=== PATIENT | female | born 1930 | race Caucasian/White ===

== ENCOUNTER 2017-05-13 15:01 | Emergency (ER) | payer MEDICARE, OTHER ==
[2017-05-13] MEDS ORDERED: Acetaminophen/HYDROcodone 325-10 MG Tab PO ONE (15:21)
[2017-05-13 16:05] VITALS: BP 139/77
--- NOTE | 2017-05-13 16:20 | EDM.PDOC ---
Scribed by Alexandra Aguilar 05/13/17 [id number] for George Wilhelm MD ED HPI GENERAL MEDICAL PROBLEM - General Chief Complaint: Lower Extremity Injury/Pain Stated Complaint: BACK ENJURY [id number] Time Seen by Provider: 05/13/17 15:07 Source of Information: Reports: Patient, RN, RN Notes Reviewed History Limitations: Reports: No Limitations - History of Present Illness INITIAL COMMENTS - FREE TEXT/NARRATIVE: Patient said that she lost her footing and fell landed in a sitting position. Denies head injury, loss of consciousness or any other injuries. Complains of pain to the left buttock and pelvis area. She states that she was able to get herself up and has been ambulatory. She had a friend drive her to the ER. She reports a firm tender swelling at the left buttock. She was concerned because she takes Coumadin and her INR was 2.9 this last week. Location: Reports: Other (buttock) Quality: Reports: Ache Severity: Severe Improves with: Reports: None Worsens with: Reports: None Associated Symptoms: Reports: No Other Symptoms Left Pain Score (Numeric/FACES): 8 - Related Data Allergies Allergy/AdvReac Type Severity Reaction Status Date / Time Horse/Equine Containing Allergy Cannot Verified 05/13/17 15:21 Products Remember spironolactone Allergy Cannot Verified 05/13/17 15:21 Remember Home Meds: Home Meds Atenolol [Atenolol] 25 mg PO DAILY 05/13/17 [History] Brimonidine [Alphagan 0.2% Ophth Soln] 3 drop EYEBOTH DAILY 05/13/17 [History] Calcium Carbonate [Tums] 2 tab PO DAILY 05/13/17 [History] Cholecalciferol (Vitamin D3) [Vitamin D3] 1 tab PO DAILY 05/13/17 [History] Enalapril Maleate [Enalapril Maleate] 20 mg PO DAILY 05/13/17 [History] Multivitamin with Minerals [Multiple Vitamin] 1 tab PO DAILY 05/13/17 [History] Omeprazole 1 tab PO DAILY 05/13/17 [History] Timolol Maleate [Timoptic 0.5% Ophth Soln] 2 drop .ROUTE DAILY 05/13/17 [History ] Warfarin [Coumadin] 2.5 mg PO ASDIRECTED 05/13/17 [History] Warfarin [Coumadin] 5 mg PO ASDIRECTED 05/13/17 [History] amLODIPine Besylate [Amlodipine Besylate] 10 mg PO DAILY 05/13/17 [History] atorvaSTATin [Lipitor] 10 mg PO DAILY 05/13/17 [History] Social & Family History - Family History Family Medical History: Noncontributory ED ROS GENERAL - Review of Systems Review Of Systems: ROS reveals no pertinent complaints other than HPI. ED EXAM,LOWER BACK PAIN/INJURY - Physical Exam Exam: See Below Exam Limited By: No Limitations General Appearance: Alert, WD/WN, No Apparent Distress Neck: Normal Inspection, Supple, Non-Tender, Full Range of Motion Respiratory/Chest: No Respiratory Distress, Lungs Clear, Normal Breath Sounds, No Accessory Muscle Use, Chest Non-Tender Cardiovascular: Normal Peripheral Pulses, Regular Rate, Rhythm, No Edema, No Gallop, No JVD, No Murmur, No Rub GI/Abdominal: Normal Bowel Sounds, Soft, Non-Tender, No Organomegaly, No Distention, No Abnormal Bruit, No Mass (Female) Exam: Deferred Rectal (Female) Exam: Deferred Extremities: Other (large tender hematoma on left buttock.) Neurological: Alert, Normal Mood/Affect, Normal Dorsiflexion, CN II-XII Intact, Normal Plantar Flexion, Normal Gait, Normal Reflexes, No Motor/Sensory Deficits , Oriented x 3 Psychiatric: Normal Affect, Normal Mood Skin Exam: Other (minor superficial abrasion to left elbow and left buttock.) Course - Vital Signs Last Recorded V/S: Last Vital Signs Temp 37.1 C 05/13/17 15:30 Pulse 68 05/13/17 15:30 Resp 18 05/13/17 15:30 BP 139/77 05/13/17 15:30 Pulse Ox 98 05/13/17 15:30 For vitals see nurses notes. - Orders/Labs/Meds Orders: Active Orders 24 hr Category Date Time Status Pelvis wo Cont [CT] Urgent Exams 05/13/17 15:07 Taken Labs: Laboratory Tests 05/13/17 05/13/17 Range/Units 15:23 15:23 WBC 10.5 H (5.0-10.0) 10^3/uL RBC 4.34 (4.2-5.4) 10^6/uL Hgb 12.7 (12.0-16.0) g/dL Hct 38.7 (37.0-47.0) % MCV 89.2 (80-100) fL MCH 29.3 (27.0-34.0) pg MCHC 32.8 L (33.0-35.0) g/dL Plt Count 141 L (150-450) 10^3/uL Neut % (Auto) 81.8 H (42.2-75.2) % Lymph % (Auto) 12.2 L (20.5-50.1) % Rabun % (Auto) 5.1 (2-8) % Eos % (Auto) 0.7 L (1.0-3.0) % Baso % (Auto) 0.2 (0.0-1.0) % PT 30.3 H (9.0-12.0) SEC INR 3.0 H (0.9-1.2) Meds: Medications Discontinued Medications Generic Name Dose Route Start Last Admin Trade Name Freq PRN Reason Stop Dose Admin Hydrocodone Bitart/Acetaminophen 0.5 tab 05/13/17 15:21 05/13/17 15:42 Beatty 325-10 Mg PO 05/13/17 15:22 0.5 tab ONETIME ONE Administration - Radiology Interpretation Free Text/Narrative:: CT pelvis: No acute fracture. Borad-based disc bulge, facet hypertrophy, and ligament hypertrophy at L3/L4 and L4/L5 consistent with spinal stenosis. Few loops of mildly dilated small bowel with air-fluid levels. May represent ileus or early small bowel obstruction. See rad report. Departure - Departure Time of Disposition: 15:57 Disposition: Home, Self-Care 01 Condition: Fair Clinical Impression: Supratherapeutic INR Traumatic hematoma of buttock Qualifiers: Encounter type: initial encounter Qualified Code(s): S30.0XXA - Contusion of lower back and pelvis, initial encounter Fall as cause of accidental injury at home as place of occurrence Qualifiers: Encounter type: initial encounter Qualified Code(s): W19.XXXA - Unspecified fall, initial encounter; Y92.009 - Unspecified place in unspecified non- institutional (private) residence as the place of occurrence of the external cause - Discharge Information Instructions: Hematoma, [id number] Forms: ED Department Discharge Additional Instructions: Ice pack to left buttock. RX: Beatty 5mg/325mg. *Do not drive while under the influence of this medication. Take your next Wrfarin dose 2.5mg tomorrow as planned and take the following day 2.5mg as well. Follow up with your doctor on May 15 or for recheck. - My Orders Last 24 Hours: My Active Orders 05/13/17 15:07 Pelvis wo Cont [CT] Urgent - Assessment/Plan Last 24 Hours: My Active Orders 05/13/17 15:07 Pelvis wo Cont [CT] Urgent I have read and agree with the documentation that has been completed regarding this visit. By signing this record, I attest that the documentation was completed in my physical presence and is an accurate record of the encounter.
== END 2017-05-13 16:20 | disposition home or self-care (01) ==
LOC: DL.ED 15:01
DX: S30.0XXA Contusion of lower back and pelvis, initial encounter (principal); S50.312A Abrasion of left elbow, initial encounter; S30.810A Abrasion of lower back and pelvis, initial encounter; R79.1 Abnormal coagulation profile; Z79.899 Other long term (current) drug therapy; Z88.8 Allergy status to other drugs, medicaments and biological substances; Z91.09 Other allergy status, other than to drugs and biological substances; W19.XXXA Unspecified fall, initial encounter; Y92.009 Unspecified place in unspecified non-institutional (private) residence as the place of occurrence of the external cause
CPT/HCPCS: 36415; 72192; 85025; 85610; 99284; A9270

== ENCOUNTER 2017-05-20 10:10 | Emergency (ER) | payer MEDICARE, OTHER ==
--- NOTE | 2017-05-20 10:14 | EDM.PDOC ---
ED HPI GENERAL MEDICAL PROBLEM - General Chief Complaint: General Stated Complaint: HEMATOMA, WORSE Time Seen by Provider: 05/20/17 11:30 Source of Information: Reports: Patient, RN, RN Notes Reviewed History Limitations: Reports: No Limitations - History of Present Illness INITIAL COMMENTS - FREE TEXT/NARRATIVE: Fell one week ago. Was seen in ER. No new injury. Concerned she may be bleeding still as she takes Coumadin. Quality: Reports: Ache Severity: Mild Improves with: Reports: None Worsens with: Reports: None Associated Symptoms: Reports: No Other Symptoms - Related Data Allergies Allergy/AdvReac Type Severity Reaction Status Date / Time Horse/Equine Containing Allergy Cannot Verified 05/20/17 10:16 Products Remember spironolactone Allergy Cannot Verified 05/20/17 10:16 Remember Home Meds: Home Meds Atenolol [Atenolol] 25 mg PO DAILY 05/13/17 [History] Brimonidine [Alphagan 0.2% Ophth Soln] 3 drop EYEBOTH DAILY 05/13/17 [History] Calcium Carbonate [Tums] 2 tab PO DAILY 05/13/17 [History] Cholecalciferol (Vitamin D3) [Vitamin D3] 1 tab PO DAILY 05/13/17 [History] Enalapril Maleate [Enalapril Maleate] 20 mg PO DAILY 05/13/17 [History] Multivitamin with Minerals [Multiple Vitamin] 1 tab PO DAILY 05/13/17 [History] Omeprazole 1 tab PO DAILY 05/13/17 [History] Timolol Maleate [Timoptic 0.5% Ophth Soln] 2 drop .ROUTE DAILY 05/13/17 [History ] Warfarin [Coumadin] 2.5 mg PO ASDIRECTED 05/13/17 [History] Warfarin [Coumadin] 5 mg PO ASDIRECTED 05/13/17 [History] amLODIPine Besylate [Amlodipine Besylate] 10 mg PO DAILY 05/13/17 [History] atorvaSTATin [Lipitor] 10 mg PO DAILY 05/13/17 [History] Past Medical History HEENT History: Reports: Glaucoma Cardiovascular History: Reports: Afib, Hypertension Gastrointestinal History: Reports: GERD Hematologic History: Reports: Anticoagulation Therapy Social & Family History - Family History Family Medical History: Noncontributory - Tobacco Use Smoking Status *Q: Never Smoker - Recreational Drug Use Recreational Drug Use: No ED ROS GENERAL - Review of Systems Review Of Systems: ROS reveals no pertinent complaints other than HPI. ED EXAM, GENERAL - Physical Exam Exam: See Below Exam Limited By: No Limitations General Appearance: Alert, WD/WN, No Apparent Distress Eye Exam: Bilateral Eye: Normal Inspection Ears: Normal External Exam, Normal Canal, Hearing Grossly Normal, Normal TMs Nose: Normal Inspection, Normal Mucosa, No Blood Throat/Mouth: Normal Inspection, Normal Lips, Normal Teeth, Normal Gums, Normal Oropharynx, Normal Voice, No Airway Compromise Head: Atraumatic, Normocephalic Neck: Normal Inspection, Supple, Non-Tender, Full Range of Motion Respiratory/Chest: No Respiratory Distress, Lungs Clear, Normal Breath Sounds, No Accessory Muscle Use, Chest Non-Tender Cardiovascular: Normal Peripheral Pulses, Regular Rate, Rhythm, No Edema, No Gallop, No JVD, No Murmur, No Rub GI/Abdominal: Normal Bowel Sounds, Soft, Non-Tender, No Organomegaly, No Distention, No Abnormal Bruit, No Mass (Female) Exam: Deferred Rectal (Female) Exam: Deferred Back Exam: Normal Inspection, Full Range of Motion, NT Extremities: Other (hematoma ecchymosis left hip, buttock, thich and calf. ) Neurological: Alert, Oriented, CN II-XII Intact, Normal Cognition, Normal Gait, Normal Reflexes, No Motor/Sensory Deficits Psychiatric: Normal Affect, Normal Mood Skin Exam: Other (see musckuloskletal exam. ) Course - Vital Signs Last Recorded V/S: Last Vital Signs Temp 97.8 F 05/20/17 10:18 Pulse 62 05/20/17 10:18 Resp 16 05/20/17 10:18 BP 129/50 L 05/20/17 10:18 Pulse Ox 100 05/20/17 10:18 Departure - Departure Time of Disposition: 11:30 Disposition: Home, Self-Care 01 Condition: Good Clinical Impression: Blood coagulation disorder, Hematoma - Discharge Information Instructions: Hematoma, [id number] Forms: ED Department Discharge Additional Instructions: Follow up with primary care provider this week as scheduled. Ice the area as needed. Heating pad to the back as needed.
[2017-05-20 10:24] VITALS: BP 129/50
== END 2017-05-20 11:36 | disposition home or self-care (01) ==
LOC: DL.ED 10:10
DX: S80.12XA Contusion of left lower leg, initial encounter (principal); S70.02XA Contusion of left hip, initial encounter; S30.0XXA Contusion of lower back and pelvis, initial encounter; D68.9 Coagulation defect, unspecified; I10 Essential (primary) hypertension; I48.91 Unspecified atrial fibrillation; K21.9 Gastro-esophageal reflux disease without esophagitis; Z79.01 Long term (current) use of anticoagulants; Z79.899 Other long term (current) drug therapy; Z91.048 Other nonmedicinal substance allergy status; W19.XXXA Unspecified fall, initial encounter
CPT/HCPCS: 99283

== ENCOUNTER → 2019-03-03 | Outpatient (CLI) | payer MEDICARE, OTHER ==
--- NOTE | 2019-03-04 15:28 | MR ---
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 Follow-up evaluation please. SCAN TECHNIQUE: Sagittal T1/T2/T2 fat saturation and unenhanced axial T1/T2 magnetic resonance images of the lumbar spine obtained with the patient lying supine on the [employer] magnet [place], [place]. All data archived in the PACS system for storage, reformatting axial/sagittal planes and study. INTERPRETATION: Abnormal. 1. Greater than 50% collapse of the L2 vertebral body (compression or insufficiency fracture) new since December 2011 exam but without current signs of edema on the T2 fat saturation sequence i.e. not acute. 2. Old compression fractures of the T11 and T12 vertebra. 3. Chronic multilevel disc degeneration, i.e., desiccation and flattening nucleus pulposus intervertebral discs at nearly all levels but particularly severe at the L4-5 level (associated hypertrophic marginal spur). 4. No acute new lumbar fracture or spondylolisthesis. 5. Prominent disc-osteophyte complexes contributing with hypertrophy of the ligamentum flavum to a generalized lumbar spinal canal stenosis involving the L1-2, L2-3, L3-4 and L4-5 levels. 6. Reproducible large sacral cyst terminal spinal canal. No extruded "free" intracanalicular disc fragment or tissue tumor mass.
== END ==
LOC: DL.MRI 13:21
PROVIDERS: ATTEND Nurse Practitioner
DX: M54.5 Low back pain (principal); G89.29 Other chronic pain
CPT/HCPCS: 72148